=== PATIENT | male | born 1940 | race Caucasian/White ===

== ENCOUNTER 2018-05-23 10:41 | Inpatient (IN) | payer OTHER ==
[~2018-05-23] VITALS: Ht 170.2 cm; Wt 84.4 kg
[2018-05-25] MEDS ORDERED: SIMVASTATIN20 MG PO (12:15)
[2018-05-25] MEDS ORDERED: ENALAPRIL MALEAT5 MG PO (12:15)
[2018-05-25] MEDS ORDERED: CLOPIDOGREL BIS75 MG PO (12:16)
== END 2018-05-25 13:46 | disposition home or self-care (01) | DRG 69 ==
LOC: ER 10:41 → SURG 17:41 → SEC-K 17:41 → SURG 19:42
PROVIDERS: ADMIT Internal Medicine
PROC: 4A12X4Z Monitoring of Cardiac Electrical Activity, External Approach (ICD-10-PCS; principal; 2018-05-23)
PROC: B020ZZZ Computerized Tomography (CT Scan) of Brain (ICD-10-PCS; 2018-05-23)
PROC: B030ZZZ Magnetic Resonance Imaging (MRI) of Brain (ICD-10-PCS; 2018-05-23)
PROC: B345ZZZ Ultrasonography of Bilateral Common Carotid Arteries (ICD-10-PCS; 2018-05-23)
PROC: B346ZZZ Ultrasonography of Right Internal Carotid Artery (ICD-10-PCS; 2018-05-23)
PROC: B246ZZZ Ultrasonography of Right and Left Heart (ICD-10-PCS; 2018-05-24)
DX: G45.8 Other transient cerebral ischemic attacks and related syndromes (principal); I63.89 Other cerebral infarction; I10 Essential (primary) hypertension; I67.82 Cerebral ischemia
CPT/HCPCS: 70551

== ENCOUNTER 2018-08-09 13:34 | Outpatient (CLI) | payer OTHER ==
[~2018-08-09 13:34] MED LIST: CLOPIDOGREL BIS75 MG PO; ENALAPRIL MALEAT5 MG PO; SIMVASTATIN20 MG PO
== END 2018-08-09 13:48 | disposition home or self-care (01) ==
LOC: RAD 13:34
DX: M19.90 Unspecified osteoarthritis, unspecified site (principal)

== ENCOUNTER 2018-11-06 14:32 | Outpatient (CLI) | payer OTHER | END 2018-11-06 15:00 | disposition home or self-care (01) | LOC: RAD 14:32 | DX: M19.079 Primary osteoarthritis, unspecified ankle and foot (principal); M19.072 Primary osteoarthritis, left ankle and foot ==

== ENCOUNTER 2019-02-08 09:42 | Outpatient (CLI) | payer OTHER | END 2019-02-08 09:59 | disposition home or self-care (01) | LOC: SONOGRAMA 09:42 → MAMO-SONO 10:00 | DX: R10.84 Generalized abdominal pain (principal) ==

== ENCOUNTER 2019-09-04 12:54 | Outpatient (CLI) | payer OTHER | END 2019-09-04 13:05 | disposition home or self-care (01) | LOC: RAD 12:54 | PROVIDERS: ATTEND Internal Medicine Cardiovascular Disease | DX: M12.88 Other specific arthropathies, not elsewhere classified, other specified site (principal) ==

== ENCOUNTER 2019-09-11 08:37 | Outpatient (CLI) | payer OTHER | END 2019-09-11 08:39 | disposition home or self-care (01) | LOC: NUCLEAR 08:37 | PROVIDERS: ATTEND Internal Medicine Cardiovascular Disease | DX: G45.8 Other transient cerebral ischemic attacks and related syndromes (principal) ==

== ENCOUNTER 2019-11-29 12:30 | Emergency (ER) | payer OTHER ==
[~2019-11-29] VITALS: Ht 170.2 cm; Wt 83.5 kg
[2019-11-29] MEDS ORDERED: LOSARTAN POTASS25 MG (14:10)
== END 2019-11-29 17:58 | disposition home or self-care (01) ==
LOC: ER 12:30
DX: K29.70 Gastritis, unspecified, without bleeding (principal); I10 Essential (primary) hypertension

== ENCOUNTER 2019-12-18 08:46 | Outpatient (CLI) | payer OTHER ==
[~2019-12-18 08:46] MED LIST changes: +LOSARTAN POTASS25 MG
== END 2019-12-18 09:02 | disposition home or self-care (01) ==
LOC: SONOGRAMA 08:46
PROVIDERS: ATTEND Internal Medicine Cardiovascular Disease
DX: R10.84 Generalized abdominal pain (principal)

== ENCOUNTER 2020-01-27 05:00 | Inpatient (IN) | payer OTHER ==
[~2020-01-27] VITALS: Ht 170.2 cm; Wt 83.9 kg
== END 2020-01-29 10:25 | disposition home or self-care (01) | DRG 416 ==
LOC: CIR.AMB 05:00 → SURG 11:56
PROVIDERS: ADMIT Specialist; ATTEND Specialist
PROC: 0FJ44ZZ Inspection of Gallbladder, Percutaneous Endoscopic Approach (ICD-10-PCS; 2020-01-27)
PROC: 0FT40ZZ Resection of Gallbladder, Open Approach (ICD-10-PCS; principal; 2020-01-27 07:00)
DX: K80.10 Calculus of gallbladder with chronic cholecystitis without obstruction (principal); I10 Essential (primary) hypertension; Z53.31 Laparoscopic surgical procedure converted to open procedure

== ENCOUNTER 2020-06-23 14:20 | Outpatient (CLI) | payer OTHER | END 2020-06-23 14:31 | disposition home or self-care (01) | LOC: RAD 14:20 | PROVIDERS: ATTEND Internal Medicine Cardiovascular Disease | DX: M46.47 Discitis, unspecified, lumbosacral region (principal) ==

== ENCOUNTER 2020-10-28 11:57 | Emergency (ER) | payer OTHER ==
[~2020-10-28] VITALS: Ht 170.2 cm; Wt 81.6 kg
== END 2020-10-28 16:47 ==
LOC: ER 11:57
DX: M62.81 Muscle weakness (generalized) (principal); I10 Essential (primary) hypertension; Z03.818 Encounter for observation for suspected exposure to other biological agents ruled out

== ENCOUNTER 2020-11-23 08:00 | Outpatient (CLI) | payer OTHER | END 2020-11-23 08:30 | disposition home or self-care (01) | LOC: PPH VACUNA 08:00 | PROVIDERS: ATTEND Emergency Medicine Pediatric Emergency Medicine | DX: Z23 Encounter for immunization (principal) ==

== ENCOUNTER 2021-02-14 17:48 | Outpatient (CLI) | payer OTHER | END 2021-02-14 17:51 | disposition home or self-care (01) | LOC: LAB 17:48 | PROVIDERS: ATTEND Internal Medicine Cardiovascular Disease | DX: Z20.822 Contact with and (suspected) exposure to COVID-19 (principal); R06.2 Wheezing; R50.9 Fever, unspecified ==

== ENCOUNTER 2021-02-18 13:46 | Emergency (ER) | payer OTHER ==
[~2021-02-18] VITALS: Ht 167.6 cm; Wt 84.4 kg
== END 2021-02-18 20:42 | disposition designated cancer center or children's hospital (05) ==
LOC: ER 13:46
DX: S06.360A Traumatic hemorrhage of cerebrum, unspecified, without loss of consciousness, initial encounter (principal); G91.9 Hydrocephalus, unspecified; I10 Essential (primary) hypertension; Z20.822 Contact with and (suspected) exposure to COVID-19; X58.XXXA Exposure to other specified factors, initial encounter; Y92.89 Other specified places as the place of occurrence of the external cause

== ENCOUNTER 2021-05-18 12:33 | Outpatient (CLI) | payer OTHER | END 2021-05-18 12:42 | disposition home or self-care (01) | LOC: RAD 12:33 | PROVIDERS: ATTEND Internal Medicine Cardiovascular Disease | DX: M12.9 Arthropathy, unspecified (principal) ==

== ENCOUNTER 2021-07-01 08:00 | Outpatient (CLI) | payer OTHER | END 2021-07-01 08:30 | disposition home or self-care (01) | LOC: PPH VACUNA 08:00 | PROVIDERS: ATTEND Emergency Medicine Pediatric Emergency Medicine | DX: Z23 Encounter for immunization (principal); Z71.85 Encounter for immunization safety counseling ==

== ENCOUNTER 2021-07-21 10:11 | Outpatient (CLI) | payer OTHER | END 2021-07-21 10:24 | disposition home or self-care (01) | LOC: MRI 10:11 | PROVIDERS: ATTEND Neuromusculoskeletal Medicine & OMM | DX: I60.9 Nontraumatic subarachnoid hemorrhage, unspecified (principal) | CPT/HCPCS: 70551 ==

== ENCOUNTER 2021-08-11 09:03 | Outpatient (CLI) | payer OTHER | END 2021-08-11 09:14 | disposition home or self-care (01) | LOC: MRI 09:03 | PROVIDERS: ATTEND Neuromusculoskeletal Medicine & OMM | DX: I72.9 Aneurysm of unspecified site (principal); I65.1 Occlusion and stenosis of basilar artery; I65.09 Occlusion and stenosis of unspecified vertebral artery; I65.29 Occlusion and stenosis of unspecified carotid artery; Q28.2 Arteriovenous malformation of cerebral vessels | CPT/HCPCS: 70544 ==

== ENCOUNTER 2021-11-09 12:44 | Outpatient (CLI) | payer OTHER | END 2021-11-09 12:54 | disposition home or self-care (01) | LOC: PPH VACUNA 12:44 | PROVIDERS: ATTEND Emergency Medicine Pediatric Emergency Medicine | DX: Z23 Encounter for immunization (principal) ==

== ENCOUNTER 2023-12-17 13:29 | Emergency (ER) | payer OTHER ==
[~2023-12-17] VITALS: Ht 162.6 cm; Wt 67.6 kg
[2023-12-17] MEDS ORDERED: ECOTRIN81 MG (14:20)
[2023-12-17] MEDS ORDERED: NIFEDIPINE20 MG (14:21)
[2023-12-17] MEDS ORDERED: HYDRODIURIL12.5 MG PO (14:21)
[2023-12-17] MEDS ORDERED: CARVEDILOL ER40 MG (14:22)
[2023-12-17] MEDS ORDERED: NORFLEX100MG PO (14:23)
[2023-12-17] MEDS ORDERED: COZAAR25 MG PO (14:23)
[2023-12-17] MEDS ORDERED: TAMS0.4C PO (14:24)
[2023-12-17] MEDS ORDERED: DORZOLAMIDE-TIM10 ML (14:24)
[2023-12-17] MEDS ORDERED: 0.9 % SODIUM CHLORIDE 1,000 ML IV ONE (15:15)
[2023-12-17 15:33] LABS: MEAN CORPUSCULAR HEMOGLOBIN 31.3 pg (27.00-32.0); MEAN CORPUSCULAR HGB CONC 34.7 g/dl (32.0-36.0); PLATELET COUNT 193 K/uL (150-450); RED BLOOD COUNT 5.11 M/uL (4.00-6.00); RED CELL DISTRIBUTION WIDTH 13.3 % (11.5-14.5)
[2023-12-17 16:33] LABS: ALBUMIN 3.9 gm/dL (3.4-5.0); BILIRUBIN TOTAL 0.39 mg/dL (0.3-1.2); CALCIUM 9.2 mg/dL (8.5-10.1); CREATININE SERUM 1.56 mg/dL (0.70-1.30); GFR 42.93; POTASSIUM 4.36 mEq/L (3.5-5.1); TOTAL PROTEIN 7.9 gm/dL (6.4-8.2)
[2023-12-17] MEDS ORDERED: FAMOTIDINE/PF 20 MG in 0.9 % SODIUM CHLORIDE 8 ML IV PUSH STA (16:49)
[2023-12-17 17:23] LABS: URINE BACTERIA 6936.2 uL (0.0-1933); URINE EPITHELIAL CELLS 1.5 uL (0.0-38.8); URINE RBC 7.7 uL (0.0-20.8); URINE WBC 1153.7 uL (0.0-23.2)
[2023-12-17 17:26] LABS: URINE APPEARANCE Cloudy; URINE BILIRRUBIN Negative (NEGATIVE); URINE BLOOD Moderate; URINE COLOR Yellow; URINE GLUCOSE Negative (NEGATIVE); URINE KETONE Trace (NEGATIVE); URINE LEUKOCYTE Moderate; URINE NITRATE Negative; URINE UROBILINOGEN 0.2 E.U./dl
[2023-12-17 17:27] LABS: URINE CAST 0.91 uL (0.0-1.40); URINE PROTEIN 300 (NEGATIVE)
[2023-12-17] MEDS ORDERED: LEVOFLOXACIN500 MG PO (18:48)
[2023-12-17] MEDS ORDERED: PEPCID AC20 MG PO (18:48)
[2023-12-17] MEDS ORDERED: CEFTRIAXONE SODIUM 1,000 MG VIAL IV ONE (19:00)
== END 2023-12-17 21:21 | disposition home or self-care (01) ==
LOC: ER 13:31
PROVIDERS: Emergency Medicine
DX: B34.9 Viral infection, unspecified (principal); N39.0 Urinary tract infection, site not specified; R19.7 Diarrhea, unspecified; Z20.822 Contact with and (suspected) exposure to COVID-19; I10 Essential (primary) hypertension
CPT/HCPCS: 36415; 74176; 96365; 96366; 99284; J0696; J3490; J7030